=== PATIENT | female | born 1970 | race Caucasian/White ===

== ENCOUNTER 2020-12-10 15:16 | Emergency (ER) | payer OTHER ==
[~2020-12-10] VITALS: Ht 165.1 cm; Wt 122.0 kg
[~2020-12-10 15:16] MED LIST: ATENOLOL50 MG PO; LEVOTHYROXINE175 MCG PO; PRAVASTATIN SOD40 MG PO; TRILIPIX135 MG PO
[2020-12-10] MEDS ORDERED: CLINDAMYCIN HC150 MG PO (15:33)
[2020-12-10] MEDS ORDERED: HYDROCODON-ACE1 EA12 PO (15:33)
== END 2020-12-10 15:35 | disposition home or self-care (01) ==
LOC: ER 15:30
DX: L02.811 Cutaneous abscess of head [any part, except face] (principal)
CPT/HCPCS: 99283